=== PATIENT | male | born 1990 | race Caucasian/White ===

== ENCOUNTER 2016-07-31 22:53 | Emergency (ER) | payer MEDICAID ==
[~2016-07-31] VITALS: Ht 177.8 cm; Wt 111.5 kg
[2016-07-31 22:55] VITALS: BP 121/72
[2016-07-31 23:50] LABS: APPEARANCE,URINE CLEAR (CLEAR); GLUCOSE, URINE (UA) NEGATIVE (NEGATIVE); KETONES,URINE NEGATIVE (NEGATIVE); LEUKOCYTE ESTERASE ,URINE NEGATIVE (NEGATIVE); OCCULT BLOOD,URINE NEGATIVE (NEGATIVE); PROTEIN,URINE NEGATIVE (NEGATIVE)
[2016-07-31 23:57] LABS: RBC,URINE 0-2 /HPF (0-2); SQUAMOUS EPITHELIAL CELL,UR Rare /LPF (None Seen)
== END 2016-07-31 23:57 | disposition left against medical advice (07) ==
LOC: EMS 22:55
DX: M54.5 Low back pain (principal); F12.90 Cannabis use, unspecified, uncomplicated; V49.40XA Driver injured in collision with unspecified motor vehicles in traffic accident, initial encounter; Y93.89 Activity, other specified; Y92.89 Other specified places as the place of occurrence of the external cause; Y99.8 Other external cause status; Z53.21 Procedure and treatment not carried out due to patient leaving prior to being seen by health care provider

== ENCOUNTER 2019-10-02 10:19 | Emergency (ER) | payer MEDICAID ==
[~2019-10-02] VITALS: Ht 172.7 cm; Wt 109.1 kg
[2019-10-02] MEDS ORDERED: IBUPROFEN 800 MG TABLET PO ONE (11:15)
[2019-10-02] MEDS ORDERED: LIDOCAINE 5% TRANSDERMAL PATCH TD ONE (11:15)
[2019-10-02] MEDS ORDERED: METHOCARBAMOL 500 MG TABLET PO ONE (11:15)
[2019-10-02 12:20] VITALS: BP 111/57
== END 2019-10-02 12:46 | disposition home or self-care (01) ==
LOC: EMS 10:22
DX: S20.229A Contusion of unspecified back wall of thorax, initial encounter (principal); R03.0 Elevated blood-pressure reading, without diagnosis of hypertension; F12.90 Cannabis use, unspecified, uncomplicated; W22.8XXA Striking against or struck by other objects, initial encounter; Y93.89 Activity, other specified; Y92.89 Other specified places as the place of occurrence of the external cause; Y99.8 Other external cause status
CPT/HCPCS: 71046; 71046-TC